=== PATIENT | female | born 1950 ===

== ENCOUNTER 2021-01-04 14:12 | Outpatient (REF) | payer BC, SELFPAY | END 2021-01-04 14:13 | disposition home or self-care (01) | LOC: HO.SCI 14:12 | DX: Z13.89 Encounter for screening for other disorder (principal) ==

== ENCOUNTER 2021-01-26 08:47 | Outpatient (REF) | payer BC, SELFPAY ==
--- NOTE | ~2021-01-26 | CT_ITS ---
EXAMINATION: CT ANGIOGRAM NECK CLINICAL INFORMATION: Subclavian steal syndrome. COMPARISON: None TECHNIQUE: The degree of stenosis determined by NASCET criteria. This CT examination was performed using dose optimization techniques as appropriate, variously including the following: *Automated exposure control *Adjustment of mA and/or kV according to patient size (this includes techniques or standardized protocols for targeted exams where dose is matched to indication/reason for exam; i.e. extremities or head) *Use of iterative reconstruction technique IV contrast and CT angiography of the neck with multiple coronal and sagittal reformatted images processed on the technologist's workstation under concurrent supervision. Multiple 3-D thick section MIP angiographic images of the neck vasculature are processed on the technologist's workstation under concurrent supervision. Intravenous Contrast: Omnipaque 350, 70 mL. DLP: 307 mGy-cm FINDINGS: Conventional branching anatomy of the great vessels in relation to the transverse aorta is noted. Marked focal stenosis of the proximal left subclavian artery approximately 2 cm distal to the artery origin is present with a minimum transaxial flow diameter of 2 mm (series 12 image 343) corresponding to an approximate 80% focal stenosis secondary to eccentric noncalcific atherosclerotic plaque which also includes positive remodeling at the same location. Minimal nonocclusive calcific atherosclerosis is noted within the brachiocephalic artery. The common carotid arteries are patent. The carotid bulbs are patent. The right vertebral artery is minimally dominant. No vertebral artery stenoses or occlusions are visualized. The left vertebral artery originates distal to the left subclavian stenosis noted above. Within the incidentally visualized intracranial structures, no large vessel intracranial occlusions are noted. Minimal nonocclusive calcific atherosclerosis is noted within the cavernous portions of the internal carotid arteries. Within the incidentally visualized intracranial structures, no gross abnormalities are noted. The ventricles and sulci are grossly normal in size and configuration. Bilateral ocular lens extractions are visualized. Multifocal dental amalgam is present and gives rise to scattering artifact which partially obscures visualization of adjacent structures. The thyroid is normal in appearance. The incidentally visualized lung apices demonstrate moderate centrilobular emphysematous changes. Minimal nonocclusive scattered calcific atherosclerosis is noted in the incidentally visualized transverse aorta which is normal in caliber. Moderate intervertebral disc space narrowing and mild posterior endplate osteophytosis is present at C5-C6 and to a lesser degree C6-C7. Multiple 3-D reformatted images processed on the technologist's workstation confirm findings made upon review of the initial axial image data set. CT/CT angio neck IMPRESSION: 1. Focal high-grade (80%) stenosis of the proximal left subclavian artery 2 cm distal to the artery origin secondary to focal eccentric noncalcific, nonulcerative atherosclerotic plaque. The stenosis is proximal to the origin of the left vertebral artery and may correlate with the given history of subclavian steal syndrome. 2. Patent carotid bulbs. Patent right subclavian artery. 3. Mild multilevel chronic spondylosis of the cervical spine.
[2021-01-26] MEDS: iohexoL 350 MG/ML 100 ML INFUS..BTL 70 ML IV (10:18)
== END 2021-01-26 08:48 | disposition home or self-care (01) ==
LOC: HO.CT 08:47
PROVIDERS: Visit Provider Psychiatry & Neurology Neurology
DX: G45.8 Other transient cerebral ischemic attacks and related syndromes (principal)
CPT/HCPCS: 70498; Q9967